=== PATIENT | female | born 1975 | race Caucasian/White ===

== ENCOUNTER 2017-03-23 15:51 | Emergency (ER) | payer SELFPAY ==
[~2017-03-23] VITALS: Ht 160 cm; Wt 86.4 kg
[2017-03-23] MEDS ORDERED: GUAIF600 PO (16:07)
[2017-03-23] MEDS ORDERED: ALBUTEROL SULFATE 2.5 MG/0.5 ML NEB SOLUTION NEB ONE (17:30)
[2017-03-23] MEDS ORDERED: 0.9% SODIUM CHLORIDE 5 ML NEB SOLUTION NEB ONE (18:00)
[2017-03-23 18:13] VITALS: BP 114/72
== END 2017-03-23 18:38 | disposition home or self-care (01) ==
LOC: EMS 15:54
DX: J40 Bronchitis, not specified as acute or chronic (principal); Z79.899 Other long term (current) drug therapy
CPT/HCPCS: 71010; 94640; 99283; J7613